=== PATIENT | male | born 1980 | race Caucasian/White ===

== ENCOUNTER → 2018-01-04 | Emergency (ER) | payer OTHER ==
[~2018-01-04] VITALS: Ht 167.6 cm; Wt 86.2 kg
[~2018-01-04] MED LIST: BUTALB-ACETAMI1 EAC2 PO; LEVSIN0.125 MG PO; ZANTAC 7575 MG PO
== END | disposition home or self-care (01) ==
LOC: ER 06:49
DX: G43.909 Migraine, unspecified, not intractable, without status migrainosus (principal)

== ENCOUNTER 2018-06-28 10:07 | Emergency (ER) | payer OTHER ==
[~2018-06-28] VITALS: Ht 175.3 cm; Wt 83.9 kg
[2018-06-28] MEDS ORDERED: KETO10TA2 PO (11:56)
== END 2018-06-28 12:00 | disposition home or self-care (01) ==
LOC: ER 10:07
DX: N20.0 Calculus of kidney (principal); R10.31 Right lower quadrant pain